=== PATIENT | male | born 1950 ===

== ENCOUNTER 2017-03-20 06:19 | Day surgery (SDC) | payer MEDICARE ==
[2017-03-14 13:54] VITALS: BMI 25.8
[2017-03-20] MEDS ORDERED: Lidocaine 2% Inj (20ml) ONE (06:33)
[2017-03-20] MEDS ORDERED: Atropine 0.4 mg/ml Inj (1 mL) ONE (06:34)
[2017-03-20] MEDS ORDERED: Iodixanol 320 MG/ML 200 ML BOTTLE IV ONE (06:34)
[2017-03-20] MEDS ORDERED: Iodixanol 320 MG/ML 100 ML BOTTLE IV ONE (06:34)
[2017-03-20] MEDS ORDERED: Iohexol 350mgl/ml 50 ML ONE (06:34)
[2017-03-20] MEDS ORDERED: Nitroglycerin 50mg in D5W 0 MG/0 ML BOTTLE IV ONE (06:34)
[2017-03-20] MEDS ORDERED: Phenylephrine 10 mg/ml Inj ONE (06:34)
[2017-03-20 06:47] LABS: ADD MANUAL DIFF? NO
[2017-03-20 07:05] LABS: BLOOD UREA NITROGEN 20 mg/dL (7-21); CALCIUM 9.3 mg/dL (8.4-10.5); CARBON DIOXIDE 28 mmol/L (21-33); CHLORIDE 102 mmol/L (98-107); GFR AFRICAN-AMERICAN > 60; GLUCOSE,RANDOM 259 mg/dL (70-110); POTASSIUM 4.3 mmol/L (3.6-5.0); SODIUM 136 mmol/L (132-148)
[2017-03-20 07:08] LABS: BASO # 0.03 K/mm3 (0.0-2.0); BASO % 0.6 % (0.0-3.0); EOS # 0.2 (0.0-0.7); EOS % 3.9 % (1.5-5.0); GRAN # 2.62 (1.4-6.5); GRAN % 54.3 % (50.0-68.0); HEMATOCRIT 44.9 % (42.0-52.0); INR 0.98 (0.93-1.08); LYMPH # 1.7 (1.2-3.4); MEAN CELL VOLUME 95.3 fL (80.0-105.0); MEAN CORPUSCULAR HGB CONC 32.5 g/dl (31.0-37.0); MEAN PLATELET VOLUME 10.4 fl (7.0-11.0); MONO # 0.3 (0.1-0.6); MONO % 6.2 % (1.0-6.0); PARTIAL THROMBOPLASTIN TIME 27.8 Seconds (23.7-30.8); PLATELET COUNT 228 10^3/uL (120.0-450.0); RED CELL DISTRIBUTION WIDTH 12.7 % (11.5-14.5); WHITE BLOOD COUNT 4.8 10^3/ul (4.5-11.0)
[2017-03-20] MEDS ORDERED: Midazolam 2 MG/2 ML VIAL ONE ×2 (07:08→08:05)
[2017-03-20] MEDS ORDERED: Sodium Chloride 0.9% 1,000 ML IV SCH (09:15)
--- NOTE | 2017-03-20 11:19 | CARDCATH ---
PROCEDURE DATE: 03/20/2017 HISTORY: The patient is a 66-year-old male who presents with angina. PAST MEDICAL HISTORY: Notable for smoking, diabetes mellitus, and hypertension. The patient underwent a stress test, which was abnormal. Because of this, cardiac catheterization was recommended. PROCEDURE: Left heart catheterization with coronary angiography and left ventriculogram, followed by PTCA and stent of an RCA. The right femoral artery was cannulated with a 6-[place] sheath. There were no complications. Findings on catheterization revealed a left ventricle that was low normal EF. Estimated ejection fra ction is 50-55%. His coronary anatomy revealed a right dominant circulation. The RCA revealed diffuse atherosclerosis with 80% stenosis in the proximal portion. Left main artery was calcified, but without critical lesions. The LAD was diffusely diseased with intimal irregularities and calcifications throughout its course w ithout critical lesions. The diagonal vessel revealed a 70% stenosis in the proximal portion. The circumflex artery and obtuse marginal branches revealed intimal irregularities without critical l esions. The patient was started on intravenous Angiomax. The PRU testing revealed the patient to be therapeu tic on Plavix. The guiding catheter was placed in the ostium of the RCA. An 0.014 ATW wire used to cross the critic al lesion. A 3.5 mm x 15 mm drug-eluting stent was placed and deployed at 15 atmospheres of pressure. Post-dila tation was performed with a 3.5 noncompliant balloon at 16 atmospheres of pressure. Repeat coronary angiography revealed an excellent result with no residual stenosis and DALTON 3 flow. Angio-Seal was u sed to close the femoral artery site. The patient tolerated the procedure well. SUMMARY: The procedure was successful PTCA and stent of a critically stenosed proximal RCA with a dr ug-eluting stent. Cardiac catheterization revealed 2-vessel disease with the RCA and the diagonal ve ssel. Given these findings, the patient needs to remain on aspirin indefinitely and Plavix for at least 1 y ear, and undergo a strict cardiac risk reduction program. We will consider PTCA of the diagonal vess el depending on the patient's clinical course. Pipe Burr MD cc: [id number] TT: 03/20/2017 11:19:38 jn
[2017-03-20] MEDS: Insulin Reg-MEDIUM-Coverage SC SCH ×3 (12:30→22:05)
--- NOTE | 2017-03-20 14:59 | HP ---
I was called down to the medical laboratory specialist by Dr. Burr. me to put him in the hospital under my service. He is status post cath and stent placement. He had shortness of breath and a positive stress test. He came in for cath and now is stented. He is comfortable now, lying on the gurney. He is pleasant. He is a little bit sedated. No chest pain or shortness of breath. No abdominal pain. A little hungry. PAST MEDICAL HISTORY: Diabetes. He has BPH, tuberculosis 15 years ago, unknown family history. He had excision of a left hand cyst. He was smoking. He quit 1 month ago. Occasional alcohol, if any. No substance abuse. He has peripheral swelling from time to time. He is alert, awake, and comfortable x 3. He is cooperative, appropriate, understanding. He had a cardiac cath, Dr. Burr. VITAL SIGNS: 97.9 temp, 60 pulse, 181/74, 158/74 blood pressures, 18 respiratory rate, 99% O2 sat on oxygen. I will put him on Norvasc 5 mg for the blood pressure, make sure he is on oxygen. REVIEW OF SYSTEMS: No change in vision, no hearing issues at this time, nothing new. No headache, no chest pain, no shortness of breath, no abdominal pain. No extremity pain. He has to lie flat right now, breathes fairly comfortable, coming out of sedation. PHYSICAL EXAMINATION: HEENT: His head is atraumatic, normocephalic. Extraocular muscles are intact. Throat is moist. NECK: Supple. HEART: Regular rate. LUNGS: Decreased breath sounds, but clear to auscultation. ABDOMEN: Soft, nontender, positive bowel sounds. EXTREMITIES: Trace edema of the feet. He has got a bandage over the incision site. NEUROLOGIC: He is alert and oriented x 3. Cranial nerves II-XII grossly intact. Thyroid midline, nonpalpable lymphadenopathy appreciated. MEDICATIONS: He is currently on Ecotrin, insulin coverage, Lipitor, Nicoderm patch, Norvasc, Plavix, and IV fluids. LABORATORY DATA: He had a 4.8 white count, 14.6 hemoglobin, 44.9 hematocrit with platelets of 228. His INR is 0.98. He has a 136 sodium, potassium 4.3, BUN 20, creatinine 0.8, GFR is greater than 60, sugar is 259. I put him on insulin coverage. Calcium is 9.3. He will be watched overnight. He will lay flat for the next 6 hours. He will have a diet. I discussed the medications with Dr. Burr. He has got Ecotrin, insulin coverage, Lipitor, Nicoderm patch, Norvasc, Plavix, and IV fluids. We will check his labs tomorrow. Continue with postoperative care for a catheterization and stent. He is here for coronary artery disease, positive stress test. Robert Swain DO cc: [id number] TT: 03/20/2017 14:59:01 tn MTDD
--- NOTE | 2017-03-20 22:45 | CARD ---
APPROVED REPORT EKG Measurement Heart [id number] <Conclusion> Sinus bradycardia Otherwise normal ECG
[2017-03-21 05:34] VITALS: O2SAT 100
[2017-03-21 06:53] LABS: ADD MANUAL DIFF? NO
[2017-03-21 07:05] LABS: BASO # 0.01 K/mm3 (0.0-2.0); BASO % 0.1 % (0.0-3.0); EOS # 0.1 (0.0-0.7); EOS % 1.5 % (1.5-5.0); GRAN # 5.51 (1.4-6.5); GRAN % 67.7 % (50.0-68.0); HEMATOCRIT 44.3 % (42.0-52.0); MEAN CELL VOLUME 94.9 fL (80.0-105.0); MEAN CORPUSCULAR HGB CONC 32.7 g/dl (31.0-37.0); MONO # 0.5 (0.1-0.6); MONO % 5.7 % (1.0-6.0); PLATELET COUNT 205 10^3/uL (120.0-450.0); RED CELL DISTRIBUTION WIDTH 12.6 % (11.5-14.5); WHITE BLOOD COUNT 8.1 10^3/ul (4.5-11.0)
[2017-03-21 07:15] LABS: ALB/GLOB RATIO 1.1 (1.1-1.8); ALKALINE PHOSPHATASE 70 U/L (38-133); ALT/SGPT 30 U/L (7-56); AST/SGOT 23 U/L (15-59); BILIRUBIN,TOTAL 1.2 mg/dL (0.2-1.3); BLOOD UREA NITROGEN 17 mg/dL (7-21); CALCIUM 9.2 mg/dL (8.4-10.5); CARBON DIOXIDE 23 mmol/L (21-33); CHLORIDE 104 mmol/L (98-107); GFR AFRICAN-AMERICAN > 60; GLUCOSE,RANDOM 254 mg/dL (70-110); SODIUM 133 mmol/L (132-148); TOTAL PROTEIN 6.1 g/dL (5.8-8.3)
[2017-03-21] MEDS: Insulin Reg-MEDIUM-Coverage SC SCH (08:05)
--- NOTE | 2017-03-21 10:40 | PN ---
DATE: 03/21/[address] Pipe Burr. SUBJECTIVE: The patient denies any chest pain or groin bleeding. PHYSICAL EXAMINATION: VITAL SIGNS: Blood pressure 154/83, heart rate 69, temperature 98.5, respirations 20. HEENT: Normocephalic. NECK: No JVD. CHEST: Clear. HEART: S1, S2 regular. EXTREMITIES: No edema. LABORATORIES: Today's CBC is entirely within normal limits. Today's SMA-7 is within normal limits e xcept for glucose of 254. Today's EKG revealed sinus bradycardia at a rate of [address] -T wave changes. ASSESSMENT: 1. Status post percutaneous transluminal coronary angioplasty and stent for critically stenosed prox imal right coronary artery with drug-eluting stent. 2. Hypertension. RECOMMENDATIONS: The patient can be discharged on his current medications including aspirin at 81 mg once a day, Lipitor at 40 mg once a day, Plavix 75 mg once a day, and Norvasc at 5 mg once a day. Yazan Dahl MD cc: [id number] TT: 03/21/2017 10:39:33 Confirmation # [id number] Dictation # [id number] tn
--- NOTE | 2017-03-21 12:19 | DS ---
HISTORY OF PRESENT ILLNESS: He came in after a positive stress test, had a cardiac cath and stented with Dr. Burr. He stayed overnight. He did very well. He is comfortable. No chest pain or shortne ss of breath, no abdominal pain. He is eating. He is going to go home today. He will go home on hi s regular medication. He takes Actos, aspirin, Flomax, Glucophage, Glucotrol, Plavix. He is on a Ni coderm patch. I discussed him quitting smoking. He has Lipitor. PHYSICAL EXAMINATION: VITAL SIGNS: Temp 98.5, pulse is 60, 154/74 blood pressure, 20 respiratory rate, 100% O2 sat on room air. HEENT: Head is atraumatic, normocephalic. HEART: Regular rate. LUNGS: Clear to auscultation. ABDOMEN: Soft. EXTREMITIES: No edema. LABORATORY DATA: He has a 133 sodium, potassium is 4, BUN 17, creatinine 0.7, GFR is greater than 60 , last sugar is 254, calcium is 9.2, total bili is 1.2, AST is 23, ALT is 30, alkaline phosphatase is 70, total protein 6.1. White count is 8.1, hemoglobin 14.5, hematocrit 44.3, platelets of 205. He was here for positive stress test, cardiac catheterization and stent placement. He has got a history of diabetes. He will be discharged to follow up with his primary care doctor and Dr. Burr in the wi xt week. Robert Swain DO cc: [id number] TT: 03/21/2017 12:19:06 meghana
[2017-03-21 12:30] VITALS: BP 159/87; PULSE 61; RESP 16; TEMP 97.8
--- NOTE | 2017-03-22 16:14 | CARD ---
APPROVED REPORT EKG Measurement Heart [id number] <Conclusion> Sinus bradycardia Nonspecific ST and T wave abnormality Abnormal ECG
== END 2017-03-21 13:26 | disposition home or self-care (01) ==
LOC: CATH 06:19 → 2RSO 09:04 → CATH 03-21 13:26
PROVIDERS: ATTEND Internal Medicine Cardiovascular Disease
DX: I25.119 Atherosclerotic heart disease of native coronary artery with unspecified angina pectoris (principal); E11.9 Type 2 diabetes mellitus without complications; I10 Essential (primary) hypertension; F17.210 Nicotine dependence, cigarettes, uncomplicated
CPT/HCPCS: 36415 ×2; 80048; 80053; 82948 ×2; 85025 ×2; 85027; 85576; 85610; 85730; 86850; 86900; 93005 ×2; 93458; 99152; 99153; C1725; C1760; C1769 ×2; C1874; C1887; C2629; C9600; J0583; J1644; J2250; J3010; J7030; J7040; Q9967

== ENCOUNTER 2018-03-16 06:14 | Day surgery (SDC) | payer MEDICARE ==
[2018-03-13 11:47] VITALS: BMI 29.0
[2018-03-16] MEDS ORDERED: Lidocaine 2% Inj (20ml) ONE (06:37)
[2018-03-16] MEDS ORDERED: Phenylephrine 10 mg/ml Inj ONE (06:37)
[2018-03-16] MEDS ORDERED: Iohexol 350mgl/ml 50 ML ONE (06:38)
[2018-03-16] MEDS ORDERED: Iodixanol 320 MG/ML 100 ML BOTTLE IV ONE (06:38)
[2018-03-16] MEDS ORDERED: Iodixanol 320 MG/ML 200 ML BOTTLE IV ONE (06:38)
[2018-03-16] MEDS ORDERED: Nitroglycerin 50mg in D5W 50 MG/250 ML BOTTLE IV ONE (06:38)
[2018-03-16] MEDS ORDERED: Midazolam 2 MG/2 ML VIAL ONE ×2 (07:11→07:24)
[2018-03-16 07:16] LABS: BASO # 0.03 K/mm3 (0.0-2.0); BASO % 0.5 % (0.0-3.0); EOS # 0.2 (0.0-0.7); EOS % 3.7 % (1.5-5.0); GRAN # 3.69 (1.4-6.5); GRAN % 61.6 % (50.0-68.0); HEMOGLOBIN 15.3 g/dL (14.0-18.0); LYMPH # 1.8 (1.2-3.4); LYMPH % 29.2 % (22.0-35.0); MEAN CELL VOLUME 89.7 fl (80.0-105.0); MEAN CORPUSCULAR HEMOGLOBIN 30.3 pg (25.0-35.0); MEAN CORPUSCULAR HGB CONC 33.8 g/dl (31.0-37.0); MEAN PLATELET VOLUME 10.5 fl (7.0-11.0); MONO # 0.3 (0.1-0.6); RBC 5.05 10^6/uL (3.5-6.1); RED CELL DISTRIBUTION WIDTH 12.4 % (11.5-14.5)
[2018-03-16 07:30] VITALS: RESP 18
[2018-03-16 07:43] LABS: BLOOD UREA NITROGEN 19 mg/dL (7-21); CALCIUM 9.7 mg/dL (8.4-10.5); GFR AFRICAN-AMERICAN > 60; GFR NON-AFRICAN AMERICAN > 60; HDL CHOLESTEROL 52 mg/dL (29-60)
[2018-03-16 07:45] LABS: LDL CHOLESTEROL 55 mg/dL (0-129)
[2018-03-16 07:49] LABS: INR 0.96 (0.93-1.08); PARTIAL THROMBOPLASTIN TIME 36.4 Seconds (25.1-36.5)
[2018-03-16] MEDS ORDERED: Adenosine 90 mg/30mL IV ONE (08:02)
[2018-03-16] MEDS ORDERED: Sodium Chloride 0.9% 1,000 ML IV SCH (08:45)
[2018-03-16 08:52] VITALS: TEMP 97.8
--- NOTE | 2018-03-16 10:18 | CARDCATH ---
PROCEDURE DATE: 03/16/2018 HISTORY: The patient is a 67-year-old male with multiple cardiac risk factors including diabetes mellitus, smoking, hypertension and hypercholesterolemia who is status post PTCA and stent of an RCA in the past who presents with an abnormal stress test. A cardiac catheterization is recommended. PROCEDURE: Left heart catheterization with coronary arteriography, left ventriculogram, FFR were performed. COMPLICATIONS: None. The right femoral artery was cannulated with a 6-[place] sheath. I performed moderate sedation, which included the presence of a trained observer that assisted in monitoring the patient's level of consciousness and physiologic status. After administration of Versed and fentanyl, my intra-service time was 30 minutes. Findings on catheterization revealed a right dominant circulation. The RCA revealed intimal irregularities with diffuse atherosclerosis with no critical lesions. There is a patent stent in the proximal portion. The left main artery is unremarkable. The LAD revealed diffuse atherosclerosis throughout its tree without critical lesions. There is a diagonal vessel with a 70% stenosis in the proximal portion, which is the same as the previous. The circumflex artery and obtuse marginal branches revealed diffuse atherosclerosis without critical lesions. An FFR was performed in the in the diagonal vessel lesion. The FFR was 0.87. LV function was viewed in the [place] projection. In the [place] projection, wall motion is within normal limits. Estimated ejection fraction is 55%. The patient tolerated the procedure well. Angio-Seal was used to close the femoral artery site. In summary, the procedure revealed a patent stent in the RCA. A 70% stenosis in the proximal diagonal vessel with an FFR of 0.87. No manipulation was performed. LV function is normal. Given these findings, the patient's treatment will be continued, aspirin and Plavix. The patient needs to undergo a strict cardiac risk reduction program, which needs to include cessation of smoking. Pipe Burr MD
--- NOTE | 2018-03-16 11:29 | CARD ---
APPROVED REPORT EKG Measurement Heart [id number] <Conclusion> Sinus rhythm with premature atrial complexes Nonspecific ST and T wave abnormality Abnormal ECG
[2018-03-16 14:38] VITALS: BP 173/76; PULSE 56; O2SAT 98
== END 2018-03-16 15:45 | disposition home or self-care (01) ==
LOC: CATH 06:14
PROVIDERS: ATTEND Internal Medicine Cardiovascular Disease
DX: I25.119 Atherosclerotic heart disease of native coronary artery with unspecified angina pectoris (principal); E11.9 Type 2 diabetes mellitus without complications; E78.00 Pure hypercholesterolemia, unspecified; I10 Essential (primary) hypertension; Z95.5 Presence of coronary angioplasty implant and graft; J44.9 Chronic obstructive pulmonary disease, unspecified; E78.5 Hyperlipidemia, unspecified
CPT/HCPCS: 36415; 80048; 80061; 85025; 85610; 85730; 86850; 86900; 93005; 93458; 93571; 99152; 99153; C1760; C1769 ×2; C1887; J0153; J0583; J1644; J2250; J3010; J7030 ×2; Q9966; Q9967 ×2